=== PATIENT | male | born 1960 | race Caucasian/White ===

== ENCOUNTER 2022-10-24 10:13 | Emergency (ER) | payer OTHER ==
[2022-10-24] MEDS ORDERED: Lidocaine 4% 1 each Patch TOP PRN (10:25)
[2022-10-24] MEDS ORDERED: Ketorolac 60 MG/2 ML SDV IM ONE (10:32)
== END 2022-10-24 11:45 | disposition home or self-care (01) ==
LOC: MW.ED 10:13
DX: S22.39XA Fracture of one rib, unspecified side, initial encounter for closed fracture (principal); X58.XXXA Exposure to other specified factors, initial encounter
CPT/HCPCS: 96372; 99283; A9270; J1885

== ENCOUNTER 2025-01-17 17:50 | Emergency (ER) | payer OTHER ==
[2025-01-17] MEDS ORDERED: Acetaminophen 325 MG/10.15 ML PO ONE (18:52)
[2025-01-17] MEDS: Ketorolac 30 MG/ML SDV IM ONE (19:05)
== END 2025-01-17 19:57 | disposition home or self-care (01) ==
LOC: MW.ED 17:50
DX: M54.2 Cervicalgia (principal); Z90.49 Acquired absence of other specified parts of digestive tract; V43.02XA Car driver injured in collision with other type car in nontraffic accident, initial encounter
CPT/HCPCS: 96372; 99283; A9270; J1885